=== PATIENT | female | born 1970 | race Caucasian/White ===

== ENCOUNTER → 2021-11-15 12:44 | Outpatient (CLI) | payer OTHER, SELFPAY ==
--- NOTE | ~2021-11-15 | MM_ITS ---
EXAMINATION: MM screening jade BI w jacy HISTORY: Screening mammogram, family history of breast cancer in her mother. TECHNIQUE: Craniocaudal and mediolateral oblique 3-D tomosynthesis images were obtained and synthetic 2-D images were generated. CAD analysis was submitted and interpreted. COMPARISON: No prior mammogram is available for comparison at this institution. BREAST PARENCHYMAL COMPOSITION: The breasts are heterogeneously dense, which may obscure small masses . FINDINGS: RIGHT BREAST: There is a possible mass in the posterior third of the upper outer quadrant of the [address] LEFT BREAST: An asymmetry is present in the middle/posterior third of the slightly outer breast on th e craniocaudal view. There is also a possible mass of the middle third of the inner breast 4 cm from the nipple. IMPRESSION: 1. Bilateral breast findings as described above. 2. Additional mammographic views and possible breast ultrasound are recommended. BI-RADS Category 0: Incomplete: Needs additional imaging evaluation. Reviewed, dictated and finalized at location A. IMPRESSION: 1. Bilateral breast findings as described above. 2. Additional mammographic views and possible breast ultrasound are recommended . BI-RADS Category 0: Incomplete: Needs additional imaging evaluation.
== END ==
PROVIDERS: PCP Obstetrics & Gynecology; Visit Provider Obstetrics & Gynecology
DX: Z12.31 Encounter for screening mammogram for malignant neoplasm of breast (principal); R92.8 Other abnormal and inconclusive findings on diagnostic imaging of breast
CPT/HCPCS: 77063; 77067

== ENCOUNTER → 2021-12-15 08:22 | Outpatient (CLI) | payer OTHER, SELFPAY ==
--- NOTE | ~2021-12-15 | MMUS_ITS ---
EXAMINATION: MM diagnostic jade BI w jacy, US breast BI complete HISTORY: Possible right breast mass. Possible left breast mass and asymmetry. TECHNIQUE: Additional 3-D tomosynthesis images of the breasts were performed and synthetic 2-D images were generated. CAD analysis was submitted and interpreted. High resolution bilateral complete breas t ultrasound was performed. COMPARISON: 11/15/2021 BREAST PARENCHYMAL COMPOSITION: Breast composed of scattered areas of fibroglandular density FINDINGS: MAMMOGRAPHIC FINDINGS: There are persistent asymmetries in the upper outer quadrants of both breasts. There is a small mass in the upper inner quadrant of the left breast with central lucency. ULTRASOUND: Complete bilateral US of all 4 quadrants of the breasts and retroareolar region was reviewed. Right breast ultrasound: At 6:00, 2 cm from the nipple there is an oval circumscribed hypoechoic mass with parallel orientation, no significant posterior features and no internal vascularity. At 9:00, 3 cm from the nipple, there is a 3 mm cyst. Near the areola there is an oval hypoechoic 4 mm mass with echogenic hilum, likely benign intramammary lymph node. Left breast ultrasound: At 12:00, 3 cm from the nipple, there is a 2 mm minimally complicated cyst. A t 2:00, 3 cm from the nipple there is a 7 mm cluster of microcysts. At 4:00, 4 cm from the nipple the re is a 4 mm cyst. There is a second cyst at this location measuring 3 mm. At 10:00, 4 cm from the ni pple there is a 4 mm cyst. At 10:00, 3 cm from the nipple there is an oval hypoechoic mass with enhan rio or transmission, parallel orientation and no internal vascularity. At 11:00, 4 cm from the nipple there is an oval hypoechoic 3 mm mass, likely benign. At 11:00, 4 cm from the nipple there is a marci gn intramammary lymph node measuring 5 mm, likely corresponding to the mass seen on mammography. IMPRESSION: 1. Probable benign bilateral breast masses corresponding to the areas of mammographic concern. 2. Recommend 6 month follow-up diagnostic bilateral mammogram and ultrasound. BI-RADS category 3, probably benign findings. Reviewed, dictated and finalized at location A. IMPRESSION: 1. Probable benign bilateral breast masses corresponding to the areas of mammog raphic concern. 2. Recommend 6 month follow-up diagnostic bilateral mammogram and ultrasound. BI-RADS category 3, probably benign findings.
== END ==
PROVIDERS: PCP Obstetrics & Gynecology; Visit Provider Obstetrics & Gynecology
DX: R92.8 Other abnormal and inconclusive findings on diagnostic imaging of breast (principal)
CPT/HCPCS: 76641; 77062; 77066; G0279

== ENCOUNTER → 2022-09-07 09:03 | Outpatient (CLI) | payer OTHER, SELFPAY ==
--- NOTE | ~2022-09-07 | MMUS_ITS ---
EXAMINATION: MM diagnostic jade BI w jacy, US breast BI complete HISTORY: Six-month follow-up of probable benign bilateral breast masses TECHNIQUE: ML, MLO and CC full field and spot 3-D tomosynthesis images of both breasts were performed and synthetic 2-D images were generated. CAD analysis was submitted and interpreted. High resolution bilateral complete breast ultrasound examination including all 4 quadrants and subareolar areas was performed. COMPARISON: 12/15/2021 bilateral diagnostic mammogram and bilateral complete breast ultrasound 11/15/2021 bilateral screening mammogram BREAST PARENCHYMAL COMPOSITION: The breasts are heterogeneously dense, which may obscure small masses . FINDINGS: MAMMOGRAPHIC FINDINGS: No suspicious mammographic mass or architectural distortion or any malignant calcification, skin thic kening or retraction is identified. No significant new or developing density is evident since 11/15/2021. ULTRASOUND: Right breast: 9:00 3 cm from nipple: 3 x 3.4 mm circumscribed hypoechoic lesion without internal vascularity or pos terior shadowing, likely benign Prominent subareolar ducts. Left breast: 2:00 4 cm from nipple: 3 mm circumscribed hypoechoic lesion without internal vascularity or posterior shadowing, likely benign 2:00 3 cm from nipple: Parallel circumscribed complex lesion without internal vascularity, with throu gh transmission, likely a multilocular cyst 4:00 4 cm from nipple: Contiguous up to approximately 2.5 mm cysts 5:00 3 cm from nipple: Septated 2. 54.5 mm cyst 10:00 3 cm from nipple: 3.3 mm circumscribed sonolucency with through transmission, consistent with c yst 10:00 4 cm from nipple: There is a mildly irregular and angular hypoechoic solid lesion measuring verna roximately 3 x 4 mm, with some adjacent vascularity. Ultrasound-guided biopsy is recommended. Prominent subareolar ducts IMPRESSION: 1. Mildly irregular and angular hypoechoic 3 x 4 mm solid lesion of left breast at 10:00 4 cm from ni pple 2. Ultrasound-guided biopsy of left breast 10:00 lesion is recommended BI-RADS category 4, suspicious findings. Dr. Patel telephoned the report and ultrasound-guided biopsy recommendation of left breast 10:00 madisyn n on 09/07/2022 at 1355 hours to Nurse's voicemail. Reviewed, dictated and finalized at location A. IMPRESSION: 1. Mildly irregular and angular hypoechoic 3 x 4 mm solid lesion of left breast at 10:00 4 cm from nipple 2. Ultrasound-guided biopsy of left breast 10:00 lesion is recommended BI-RADS category 4, suspicious findings. Dr. Patel telephoned the report and ultrasound-guided biopsy recommendation of l eft breast 10:00 lesion on 09/07/2022 at 1355 hours to Nurse's voicemail.
== END ==
PROVIDERS: Visit Provider Obstetrics & Gynecology
DX: R92.8 Other abnormal and inconclusive findings on diagnostic imaging of breast (principal)
CPT/HCPCS: 76641; 77062; 77066; G0279

== ENCOUNTER 2022-09-19 12:28 | Outpatient (CLI) | payer OTHER, SELFPAY ==
--- NOTE | ~2022-09-19 | MMUS_ITS ---
EXAMINATION: US breast biopsy LT w image, MM post biopsy diagnostic LT DATE: 09/19/2022 14:15 (accession [id number]), 09/19/2022 14:02 (accession [id number]) INDICATION: Indeterminate mass in the upper inner quadrant of the left breast. Ultrasound-guided core biopsy is requested to evaluate for malignancy. TECHNIQUE AND FINDINGS: The risks and potential benefits of the procedure were discussed with the patient including bleeding and infection. A time out was performed. The skin of the left breast was prepared and draped in usual sterile fashion. 1% lidocaine was used for superficial anesthesia. 1% lidocaine with epinephrine was used for deep anesthesia. A vacuum-assisted biopsy needle was advanced through to the outer edge of the region of interest from an inferior approach utilizing sonographic guidance. A total of three tissue core samples were obtai lidia through the lesion. A tissue marker clip was then placed at the biopsy site. Hemostasis was achie erasmo. A sterile bandage was applied. The patient tolerated procedure well and there was no evidence of immediate complication. The patient was given verbal instructions to return to the Emergency Department in the event of severe breast pa in or rapid breast enlargement. A two view left breast mammogram was obtained to document tissue autumn er clip placement. IMPRESSION: 1. Successful ultrasound-guided vacuum-assisted biopsy of left breast mass with tissue marker placeme nt. Reviewed, dictated and finalized at location D. IMPRESSION: 1. Successful ultrasound-guided vacuum-assisted biopsy of left breast mass with tissue marker placement.
== END 2022-09-19 12:29 | disposition home or self-care (01) ==
PROVIDERS: Visit Provider Surgery
DX: R92.8 Other abnormal and inconclusive findings on diagnostic imaging of breast (principal); N63.20 Unspecified lump in the left breast, unspecified quadrant
CPT/HCPCS: 19083; 77065; 88305; A4648

== ENCOUNTER → 2023-03-23 14:09 | Outpatient (CLI) | payer OTHER, SELFPAY ==
--- NOTE | ~2023-03-23 | MMUS_ITS ---
EXAMINATION: MM diagnostic jade BI w jacy, US breast LT limited HISTORY: Six-month follow-up after benign left breast biopsy. TECHNIQUE: Craniocaudal, mediolateral, and mediolateral oblique 3-D tomosynthesis images of the tosha ts were performed and synthetic 2-D images were generated. CAD analysis was submitted and interpreted . High resolution limited left breast ultrasound was performed. COMPARISON: 09/07/2022, 12/15/2021, 11/15/2021 BREAST PARENCHYMAL COMPOSITION: The breasts are heterogeneously dense, which may obscure small masses . FINDINGS: MAMMOGRAPHIC FINDINGS: Right breast: No suspicious mass, calcification, or architectural distortion are identified to sugge st malignancy. There has been no suspicious interval change. Left breast: There is a subtle area of architectural distortion in the anterior third of the upper/ou ter quadrant of the breast at the 1:00 location, 3 cm from the nipple (CC tomosynthesis image 35/82, ML spot tomosynthesis image 25/58). ULTRASOUND: There is no evidence of focal abnormal solid or cystic mass in the vicinity of the mammographic findi ng in question. IMPRESSION: 1. Subtle architectural distortion of the left breast without sonographic correlate. 2. 3D tomosynthesis guided biopsy is recommended. BI-RADS category 4, suspicious findings. Reviewed, dictated and finalized at location A. 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 Subtle architectural distortion of the left breast without sonographic corre late. 2. 3D tomosynthesis guided biopsy is recommended. BI-RADS category 4, suspicious findings.
== END ==
PROVIDERS: PCP Surgery; Visit Provider Surgery
DX: N63.10 Unspecified lump in the right breast, unspecified quadrant (principal); N63.20 Unspecified lump in the left breast, unspecified quadrant; N63.22 Unspecified lump in the left breast, upper inner quadrant; R92.8 Other abnormal and inconclusive findings on diagnostic imaging of breast
CPT/HCPCS: 76642; 77062; 77066; G0279

== ENCOUNTER 2023-12-26 00:22 | Day surgery (SDC) | payer OTHER, SELFPAY ==
--- NOTE | 2023-12-20 09:34 | SUR.PREOP ---
Report to the Outpatient Waiting Room, entrance under the green pavilion located off [facility], at time _1000_ on date _12/26/2023_. Planned Procedure Time: _1200_.? Time changes happen often and if your time is changed the preop area will call you the afternoon before. - You and your visitor will be asked to self-screen and do not enter if you have any COVID symptoms. Please call surgeon if you need to reschedule. - A mask is optional within the hospital at this time. Patients may have clear liquids (water, carbonated beverages, clear teas, apple juice) until 3 hours prior to surgery (0900) with a maximum of 20 ounces. - No food from midnight until time of surgery and no smoking - Infants may have breast milk until 4 hours before surgery, formula 6 hours prior to surgery. - Children will be allowed to drink immediately following surgery.? If applicable, please bring a bottle or sippy cup to assist with drinking. Juice, water, soda, and popsicles are readily available.? For infants on formula, please bring formula the day of surgery.? Pacifiers are allowed. Take only the following medications with a SIP of water on the morning of surgery: _N/A_ DO NOT STOP ANY OF YOUR OTHER PRESCRIPTION MEDICATIONS PRIOR TO SURGERY EXCEPT THE FOLLOWING Medications to discontinue per physician __Vitamins and Supplements __ Date to take last dose_12/23/23_ Please no make-up, nail nepali, hairspray, perfume, deodorant, or body powder the day of surgery.? No jewelry (including any body piercings) or valuables the day of surgery, leave them at home.? Please take a shower or bath the night before, or the morning of, surgery with an antibacterial soap.? Wear comfortable, loose fitting clothing.? Children are encouraged to wear pajamas. - Jewelry must be removed prior to entering the operating room.? Rings and piercings that are not removed may be cut off. - The hospital will not accept responsibility for valuables.? - Please leave all valuables, including medications, at home the day of surgery. If you are going home after surgery, a licensed front loader residential driver must drive you home.? - NO public transportation without another adult if you receive anesthesia. - We recommend that an adult stay with you for 24 hours following discharge. - We also recommend that you do not drive, make important decision, drink alcoholic beverages, or take any drugs that were not prescribed by your health care provider for at least 24 hours after your discharge time. For Pediatric surgeries, we recommend two adults accompany the child home. Follow any additional instructions given to you from your surgeon. Telephone instructions given to _Shannon_and asked if any additional questions and then verbalized understanding. Patient advised to call surgeon office or pre surgery nurse liaison [phone] if any additional questions.
[2023-12-20 09:51] VITALS: BMI 23.1
[2023-12-26] MEDS: ACETAMINOPHEN 500 MG TABLET 1000 MG PO (09:15)
[2023-12-26] MEDS: LACTATED RINGERS 1,000 ML 30 ML IV CONT (09:15)
[2023-12-26 09:30] VITALS: BP 126/65; PULSE 94; RESP 16; TEMP 37.1; O2SAT 99
--- NOTE | 2023-12-26 11:46 | PM.IMHP ---
H&P: HPI History of Present Illness Date/Time: 12/26/23 11:46 Chief Complaint: Postmenopausal bleeding Narrative: 53 y/o G0 with postmenopausal bleeding. Her endometrial stripe is 4 mm thick on US, with a myomatous uterus. Bilateral adnexa are unremarkable. Review of Systems Review of Systems: All systems reviewed & are unremarkable except as noted in HPI and below PMFSH Surgical History Surgical History H/O LEEP Family History Family History Father Asthma Diabetes mellitus Hypertension Mother Hypertension Cancer Social History Social History Smoking status: Never smoker Second hand tobacco smoke exposure: No Alcohol intake: current Alcohol use details: once a year Substance use type: does not use Lack of Transportation: No Lack of Food: Never True Current Housing: I Have Housing Concerned About Future Housing: No Difficulty Paying Gas/Electric Bills: No Difficulty Paying for Meds: No Currently Unemployed: No Education: High School Diploma/GED Difficulty w/ Childcare or Family Care: No Living arrangements: alone Additional living arrangements comments: alone Spiritual care concerns: No Meds Home Medications and Allergies Home Medications Medication Instructions Recorded Confirmed Type magnesium 250 mg PO DAILY 12/20/23 12/20/23 History Allergies Allergy/AdvReac Type Severity Reaction Status Date / Time No Known Allergies Allergy Verified 12/20/23 09:41 Exam Const: Orientation/consciousness: patient oriented x3 Other: Well-developed, well-nourished female in no acute distress. Neck: Thyroid: thyroid normal Lymphatic: no lymphadenopathy noted (in neck, axilla or inguinal nodes) Resp: Effort & Inspection: normal respiratory effort Auscultation: clear to auscultation bilaterally Cardio: Rate: regular rate Rhythm: regular rhythm Heart sounds: S1 normal heart sound present and S2 normal heart sound present GI: Other: ABD: Soft, nontender, nondistended. No guarding or rebound tenderness. No hepatosplenomegaly. : General: Yes no CVA tenderness Other: External genitalia: normal female hair distribution, without lesion. Urethral meatus: no lesion, non prolapsed. Bladder: no mass, nontender Vagina: well-estrogenized, without lesion or discharge. No cystocele or rectocele. Cervix: no lesion or discharge. Uterus: small, anteverted, freely mobile, nontender Adnexa: no mass or tenderness. Anus/perineum: no lesions, nontender Back/Spine/Pelvis: Back: no CVA tenderness Skin: General skin exam: normal color and no rashes or lesions noted Neuro: General: patient oriented x3 Extrem: Other: Extremities: nontender with no edema Psych: Mental Status: mental status grossly normal Affect: normal affect Assessment and Plan Assessment and plan (1) Postmenopausal bleeding: Code(s): N95.0 - Postmenopausal bleeding Status: Acute Assessment and Plan: A: Postmenopausal vaginal bleeding. P: Offered hysteroscopy with dilation and sharp curettage. She understands risks of surgery to include risks of anesthesia, risks of pain, infection, bleeding, blood products, thromboembolic phenomena and damage to adjacent structures such as bowel, bladder, ureters, blood vessels and nerves. She understands all these risks and elects to proceed with surgery.
--- NOTE | 2023-12-26 11:56 | WPDANESEPPF ---
Anes - Initial Pre Proc Eval Procedure: Operation Date: 12/26/23 12:00 Proposed Procedures p Hysteroscopy Dilation and Curettage - Tigre Canada MD Date/Time: 12/26/23 11:56 Surgeon: Tigre Canada MD Pre Op Diagnosis: Post Menopausal Bleeding Patient Data Age: 53 Gender: F Height: 1.63 m Weight: 60.1 kg Last Vital Signs Temp 98.7 F 12/26/23 09:30 Pulse 94 12/26/23 09:30 Resp 16 12/26/23 09:30 BP 126/65 12/26/23 09:30 Pulse Ox 99 12/26/23 09:30 O2 Del Method Room Air 12/26/23 09:30 Allergies Allergy/AdvReac Type Severity Reaction Status Date / Time No Known Allergies Allergy Verified 12/20/23 09:41 Home Medications Medication Instructions Recorded Confirmed Type magnesium 250 mg PO DAILY 12/20/23 12/20/23 History Patient hx anesthesia problems: none Family hx anesthesia problems: none Results Review: All pre-operative results and documents have been reviewed as part of the pre-operative evaluation. FOR[facility]LY [facility] Surgical History Surgical History H/O LEEP Family History Family History Father Asthma Diabetes mellitus Hypertension Mother Hypertension Cancer Social History Social History Smoking status: Never smoker Second hand tobacco smoke exposure: No Alcohol intake: current Alcohol use details: once a year Substance use type: does not use Lack of Transportation: No Lack of Food: Never True Current Housing: I Have Housing Concerned About Future Housing: No Difficulty Paying Gas/Electric Bills: No Difficulty Paying for Meds: No Currently Unemployed: No Education: High School Diploma/GED Difficulty w/ Childcare or Family Care: No Living arrangements: alone Additional living arrangements comments: alone Spiritual care concerns: No Anes - Eval Final PreProcedure Day of Procedure 12/26/23 11:56 Patient weight: normal Heart: regular rate and rhythm Lungs: clear to auscultation Airway: Mallampati scale class II Neurological: alert and oriented Last oral intake: >/= 8 hours ASA classification: I Emergent: no Anesthetic plan: proceed Anesthesia type and monitoring: general GIVS and standard monitoring Results Review: All pre-operative results and documents have been reviewed as part of the pre-operative evaluation. Informed Consent: The patient's anesthetic plan and its attendant risks and benefits were discussed with the patient/family/POA. Questions were solicited and answers provided to the satisfaction of the patient/family/POA.
--- NOTE | 2023-12-26 11:59 | WPDHPUPDATE1 ---
History and Physical Update Update Date/Time: 12/26/23 11:59 History and Physical has been reviewed, including an updated exam of the patient. There are NO changes in the patient's condition. Risks, benefits, and alternatives have been discussed and questions answered. Patient agrees to proceed with procedure.
[2023-12-26] MEDS: LIDOCAINE HCL 1% LOCAL INJ 10 ML VIAL INFILTRATE (12:09)
--- NOTE | 2023-12-26 12:38 | W.PM.PROC2 ---
Procedure Note - Detailed Date of Procedure 12/26/23 Pre-op Diagnosis Post Menopausal Bleeding Post-op Diagnosis Same Procedure Performed Hysteroscopy Dilation and sharp curettage Endometrial polypectomy Surgeon Tigre Canada MD Anesthesia MAC and Local (1% lidocaine) Findings Small endometrial polyp. Otherwise, atrophic-appearing endometrium. Both tubal ostia seen. Description of Procedure The patient was taken to the operating room where she was prepared and draped in the usual sterile fashion in the dorsal lithotomy position. The bladder was drained with a red rubber catheter. A sterile speculum was placed into the vagina. The anterior lip of the cervix was grasped with single-tooth tenaculum. Ten mL of 1% lidocaine was administered in a paracervical block. The cervix was then gently dilated using Hegar dilators until a 7 mm dilator could be passed. Hysteroscopy was performed using sterile saline as a distention medium. Findings are as noted above. The Aveta resector blade was used to excise the small endometrial polyp completely, under hysteroscopic visualization. Sharp curettage was then performed, and endometrial curettings were collected on a Telfa pad and passed off to be sent to pathology. Hemostasis was excellent. Sponge, lap, needle and instrument counts were correct. The patient was awakened and taken to the recovery room in stable condition. I was present and scrubbed through the entire procedure. Implants None Estimated Blood Loss 5 Drains No Packing No Pathology Yes (Endometrial curettings and polyp) Complications None Condition Stable Disposition PACU
[2023-12-26 12:40] VITALS: BP 96/60; PULSE 77; RESP 16; O2SAT 97
[2023-12-26 13:10] VITALS: BP 100/62; PULSE 61; RESP 18; O2SAT 98
[2023-12-26 13:25] VITALS: BP 107/60; PULSE 62; RESP 18
== END 2023-12-26 13:30 | disposition home or self-care (01) ==
PROVIDERS: Visit Provider Obstetrics & Gynecology
PROC: 0U5B8ZZ Destruction of Endometrium, Via Natural or Artificial Opening Endoscopic (ICD-10-PCS; CPT 58563; principal; 2023-12-26 12:00)
DX: N84.0 Polyp of corpus uteri (principal); Z98.890 Other specified postprocedural states; Z80.9 Family history of malignant neoplasm, unspecified
CPT/HCPCS: 58558; 88305; A9270; J1100; J2003; J2250; J2405; J2704; J3010; J7120